=== PATIENT | female | born 1970 | race Caucasian/White ===

== ENCOUNTER 2023-05-26 21:25 | Emergency (ER) | payer MEDICAID, MEDICARE, SELFPAY ==
[2023-05-26] MEDS ORDERED: Cephalexin 250 MG CAP ONE (22:02)
== END 2023-05-26 22:12 ==
LOC: NAV ERS 21:25
DX: L97.528 Non-pressure chronic ulcer of other part of left foot with other specified severity (principal); L08.89 Other specified local infections of the skin and subcutaneous tissue; I10 Essential (primary) hypertension; F17.200 Nicotine dependence, unspecified, uncomplicated
CPT/HCPCS: 99283